=== PATIENT | male | born 1950 | race Caucasian/White ===

== ENCOUNTER 2019-01-24 14:03 | Emergency (ER) | payer MEDICARE ==
[2019-01-24] MEDS: KETOROLAC 30 MG INJ IM (14:43)
[2019-01-24] MEDS: HYDROCODONE/APAP (5/325) TAB PO (15:58)
[2019-01-24] MEDS: ONDANSETRON (ODT) 4 MG TAB ODT (15:58)
== END 2019-01-24 16:46 | disposition home or self-care (01) ==
LOC: FTE 14:03
DX: S22.42XA Multiple fractures of ribs, left side, initial encounter for closed fracture (principal); I10 Essential (primary) hypertension; Y08.89XA Assault by other specified means, initial encounter
CPT/HCPCS: 71100; 96372; 99284-25